=== PATIENT | male | born 1945 | race Caucasian/White ===

== ENCOUNTER 2021-02-28 15:57 | Inpatient (IN) | payer MEDICARE, OTHER ==
[~2021-02-28] VITALS: Ht 182.9 cm; Wt 90.7 kg
[2021-02-28 16:41] LABS: HEMATOCRIT 26.6 % (38.2-49.6); HEMOGLOBIN 8.1 g/dL (14.0-18.0); MEAN CORPUSCULAR HEMOGLOBIN 27.4 pg (28-32); MEAN CORPUSCULAR HGB CONC 30.5 g/dL (31-35); MEAN CORPUSCULAR VOLUME 89.9 fL (81-99); PLATELET COUNT 355 x10e3/uL (140-360); RED BLOOD COUNT 2.96 x10e6/uL (4.3-5.7)
[2021-02-28] MEDS ORDERED: SODIUM CHLORIDE 0.9% 1000ML 1,000 ML IV ONE (16:45)
[2021-02-28] MEDS ORDERED: ACETAMINOPHEN 650 MG SUPP PR ONE ×2 (16:54→17:00)
[2021-02-28] MEDS ORDERED: SODIUM CHLORIDE 0.9% 1000ML 1,000 ML ONE (16:54)
[2021-02-28 16:59] LABS: ALBUMIN/GLOBULIN RATIO 0.4 (0.8-2.0); ANION GAP 15.8 mmol/L (8-16); CREATININE, SERUM 0.88 mg/dL (0.72-1.25); POTASSIUM 3.8 mmol/L (3.5-5.1)
[2021-02-28] MEDS ORDERED: CEFTRIAXONE 1 GM in SODIUM CHLORIDE 0.9% 50ML 50 ML IV SCH (17:00)
[2021-02-28] MEDS ORDERED: IOPAMIDOL 370 MG/ML 200 ML INFUS..BTL INJ ONE (18:09)
[2021-02-28] MEDS ORDERED: SODIUM CHLORIDE 0.9% 50ML 50 ML ONE (18:09)
[2021-02-28 18:17] LABS: LYMPHOCYTES % (MANUAL) 24 % (19-48); MONOCYTES % (MANUAL) 9 % (3.4-9.0); NEUTROPHILS % (MANUAL) 67 % (40-74); PLATELET ESTIMATE ADEQUATE; PLATELET MORPHOLOGY COMMENT NORMAL; RBC MORPHOLOGY COMMENT NORMAL
[2021-02-28] MEDS ORDERED: MIDAZOLAM HCL 2 MG/2 ML VIAL IV ONE (18:30)
[2021-02-28 21:00] VITALS: BP 97/57
[2021-02-28] MEDS: CEFEPIME 2 GM in SODIUM CHLORIDE 0.9% 100 ML IV SCH (21:16)
[2021-02-28] MEDS: SODIUM CHLORIDE 0.9% 1000ML 1,000 ML IV SCH (21:16)
[2021-02-28 21:20] VITALS: BP 97/57
[2021-03-01] VITALS (7 sets, daily range): BP systolic 104–112; BP diastolic 65–77
[2021-03-01] MEDS: CEFEPIME 2 GM in SODIUM CHLORIDE 0.9% 100 ML IV SCH ×3 (05:56→21:01)
[2021-03-01] MEDS: SODIUM CHLORIDE 0.9% 1000ML 1,000 ML IV SCH ×3 (06:57→20:41)
[2021-03-01 07:17] LABS: BASOPHILS # (AUTO) 0.1 (0.0-0.1); BASOPHILS % 0.3 % (0.0-1.0); EOSINOPHILS % 0.1 % (0.0-6.0); HEMATOCRIT 27.3 % (38.2-49.6); HEMOGLOBIN 8.4 g/dL (14.0-18.0); LYMPHOCYTES # (AUTO) 1.2 (1.0-3.2); LYMPHOCYTES % 6.9 % (18.0-39.1); MEAN CORPUSCULAR HEMOGLOBIN 26.9 pg (28-32); MEAN CORPUSCULAR HGB CONC 30.8 g/dL (31-35); MEAN CORPUSCULAR VOLUME 87.5 fL (81-99); MONOCYTES # (AUTO) 0.6 (0.2-0.8); MONOCYTES % 3.1 % (4.4-11.3); NEUTROPHILS # (AUTO) 15.4 (2.1-6.9); NEUTROPHILS % 87.7 % (38.7-80.0); PLATELET COUNT 276 x10e3/uL (140-360); RED BLOOD COUNT 3.12 x10e6/uL (4.3-5.7); RED CELL DISTRIBUTION WIDTH 17.2 % (11.7-14.4)
[2021-03-01 07:37] LABS: ANION GAP 14.9 mmol/L (8-16); CALCIUM 9.3 mg/dL (8.4-10.2); CREATININE, SERUM 0.73 mg/dL (0.72-1.25); POTASSIUM 3.9 mmol/L (3.5-5.1)
[2021-03-01 09:16] LABS: EOSINOPHILS % (MANUAL) 1 % (0-7); LYMPHOCYTES % (MANUAL) 7 % (19-48); MONOCYTES % (MANUAL) 3 % (3.4-9.0); NEUTROPHILS % (MANUAL) 89 % (40-74); PLATELET ESTIMATE ADEQUATE
[2021-03-01 09:17] LABS: OVALOCYTES FEW
[2021-03-01 09:18] LABS: PLATELET MORPHOLOGY COMMENT FEW EDTA CLUMPING; RBC MORPHOLOGY COMMENT NORMAL
[2021-03-01] MEDS ORDERED: FLOMAX0.4 MG PO (11:17)
[2021-03-01] MEDS ORDERED: VALPROIC A250 MG/5 M PO (11:17)
[2021-03-01] MEDS ORDERED: AMLODIPINE BESYL5 MG PO (11:17)
[2021-03-01] MEDS ORDERED: LISINOPRIL20 MG PO (11:17)
[2021-03-01] MEDS ORDERED: ALTOPREV40 MG PO (11:17)
[2021-03-01] MEDS ORDERED: PANTOPRAZOLE SO40 MG PO (11:17)
[2021-03-01] MEDS ORDERED: BENZTROPINE MESY1 MG PO (11:17)
[2021-03-01] MEDS ORDERED: RISPERIDONE0.5 MG PO (11:17)
[2021-03-01] MEDS ORDERED: ATIVAN0.5 MG PO (11:17)
[2021-03-01] MEDS ORDERED: MULTI-VITAMIN1 EACH PO (11:17)
[2021-03-01] MEDS ORDERED: ACETAMINOPHEN-1 EAC3 PO (11:17)
[2021-03-01] MEDS ORDERED: BUPROPION HCL150 M2 PO (11:17)
[2021-03-01] MEDS ORDERED: TYLENOL325 MG PO (11:17)
[2021-03-01] MEDS ORDERED: ELIQUIS2.5 MG PO (11:17)
[2021-03-01] MEDS ORDERED: IPRAT-ALBUT 0.5-3 ML IH (11:17)
[2021-03-01] MEDS ORDERED: ZINC SULFATE50 M1 PO (11:17)
[2021-03-01] MEDS ORDERED: ACETAMINOPHEN 325 MG TAB PO PRN (13:00)
[2021-03-01] MEDS ORDERED: ACETAMINOPHEN/CODEINE 300MG - 30MG TAB PO PRN (13:00)
[2021-03-01] MEDS ORDERED: ALBUTEROL/IPRATROPIUM 3 ML NEB NEB PRN (13:00)
[2021-03-01] MEDS: LISINOPRIL 20 MG TAB PO SCH (17:00)
[2021-03-01] MEDS: APIXAB 2.5 MG TABLET PO SCH (18:01)
[2021-03-01] MEDS: VALPROATE 250MG/5ML ORAL LIQ 5ml PO SCH (18:01)
[2021-03-01] MEDS: BUPROPION HCL SR 150 MG TAB PO SCH (18:02)
[2021-03-01] MEDS: RISPERIDONE 0.5 MG TAB PO SCH (21:01)
[2021-03-01] MEDS: SIMVASTATIN 20 MG TAB PO SCH (21:01)
[2021-03-01] MEDS: LORAZEPAM 0.5 MG TAB PO PRN (21:01)
[2021-03-01] MEDS: TAMSULOSIN HCL 0.4 MG CAP PO SCH (21:01)
[2021-03-01] MEDS: Vancomycin IV 1 GM in SODIUM CHLORIDE 0.9% 250ML 250 ML IV SCH (22:51)
[2021-03-02] VITALS (8 sets, daily range): BP systolic 92–139; BP diastolic 58–88
[2021-03-02] MEDS: CEFEPIME 2 GM in SODIUM CHLORIDE 0.9% 100 ML IV SCH ×3 (05:06→21:47)
[2021-03-02] MEDS: SODIUM CHLORIDE 0.9% 1000ML 1,000 ML IV SCH (05:06)
[2021-03-02 06:13] LABS: BASOPHILS % 0.2 % (0.0-1.0); EOSINOPHILS # (AUTO) 0.1 (0.0-0.4); EOSINOPHILS % 0.7 % (0.0-6.0); HEMATOCRIT 24.1 % (38.2-49.6); HEMOGLOBIN 7.7 g/dL (14.0-18.0); LYMPHOCYTES # (AUTO) 1.1 (1.0-3.2); MEAN CORPUSCULAR HEMOGLOBIN 27.1 pg (28-32); MEAN CORPUSCULAR VOLUME 84.9 fL (81-99); MONOCYTES # (AUTO) 0.4 (0.2-0.8); MONOCYTES % 3.2 % (4.4-11.3); NEUTROPHILS # (AUTO) 10.1 (2.1-6.9); NEUTROPHILS % 85.9 % (38.7-80.0); PLATELET COUNT 358 x10e3/uL (140-360); RED BLOOD COUNT 2.84 x10e6/uL (4.3-5.7)
[2021-03-02 06:31] LABS: ANION GAP 11.6 mmol/L (8-16); CREATININE, SERUM 0.8 mg/dL (0.72-1.25); POTASSIUM 3.6 mmol/L (3.5-5.1)
[2021-03-02 09:35] LABS: BAND NEUTROPHILS % (MANUAL) 3 %; LYMPHOCYTES % (MANUAL) 7 % (19-48); NEUTROPHILS % (MANUAL) 90 % (40-74)
[2021-03-02] MEDS: APIXAB 2.5 MG TABLET PO SCH ×2 (09:37→16:30)
[2021-03-02] MEDS: BENZTROPINE MESYLATE 1 MG TAB PO SCH (09:37)
[2021-03-02] MEDS: VALPROATE 250MG/5ML ORAL LIQ 5ml PO SCH ×2 (09:37→16:30)
[2021-03-02] MEDS: AMLODIPINE BESYLATE 5 MG TAB PO SCH (09:38)
[2021-03-02] MEDS: PANTOPRAZOLE SOD 40 MG TABEC PO SCH (09:38)
[2021-03-02] MEDS: MULTIVITAMINS/MINERALS TAB PO SCH (09:38)
[2021-03-02] MEDS: BUPROPION HCL SR 150 MG TAB PO SCH ×2 (09:39→16:32)
[2021-03-02] MEDS: ZINC SULFATE 50 MG CAP PO SCH (09:39)
[2021-03-02] MEDS: LISINOPRIL 20 MG TAB PO SCH ×2 (09:39→16:32)
[2021-03-02] MEDS: Vancomycin IV 1 GM in SODIUM CHLORIDE 0.9% 250ML 250 ML IV SCH ×2 (10:30→22:47)
[2021-03-02] MEDS ORDERED: LACTATED RINGER'S 1,000 ML INJ ONE (11:45)
[2021-03-02] MEDS: LORAZEPAM 0.5 MG TAB PO PRN (19:52)
[2021-03-02] MEDS: TAMSULOSIN HCL 0.4 MG CAP PO SCH (20:11)
[2021-03-02] MEDS: SIMVASTATIN 20 MG TAB PO SCH (20:11)
[2021-03-02] MEDS: RISPERIDONE 0.5 MG TAB PO SCH (20:11)
[2021-03-03] VITALS (8 sets, daily range): BP systolic 104–126; BP diastolic 63–80
[2021-03-03 05:03] LABS: EOSINOPHILS # (AUTO) 0.1 (0.0-0.4); EOSINOPHILS % 1.6 % (0.0-6.0); HEMATOCRIT 23.6 % (38.2-49.6); HEMOGLOBIN 7.2 g/dL (14.0-18.0); LYMPHOCYTES # (AUTO) 1.4 (1.0-3.2); LYMPHOCYTES % 18.3 % (18.0-39.1); MEAN CORPUSCULAR HEMOGLOBIN 26.9 pg (28-32); MEAN CORPUSCULAR HGB CONC 30.5 g/dL (31-35); MEAN CORPUSCULAR VOLUME 88.1 fL (81-99); MONOCYTES # (AUTO) 0.3 (0.2-0.8); MONOCYTES % 3.3 % (4.4-11.3); NEUTROPHILS # (AUTO) 5.7 (2.1-6.9); NEUTROPHILS % 76.1 % (38.7-80.0); PLATELET COUNT 398 x10e3/uL (140-360); RED BLOOD COUNT 2.68 x10e6/uL (4.3-5.7); RED CELL DISTRIBUTION WIDTH 17.3 % (11.7-14.4)
[2021-03-03 05:25] LABS: ALBUMIN 1.7 g/dL (3.5-5.0); ALBUMIN/GLOBULIN RATIO 0.4 (0.8-2.0); ANION GAP 9.4 mmol/L (8-16); CALCIUM 8.7 mg/dL (8.4-10.2); CREATININE, SERUM 0.8 mg/dL (0.72-1.25); POTASSIUM 3.4 mmol/L (3.5-5.1)
[2021-03-03] MEDS: CEFEPIME 2 GM in SODIUM CHLORIDE 0.9% 100 ML IV SCH ×2 (05:53→13:27)
[2021-03-03] MEDS: APIXAB 2.5 MG TABLET PO SCH ×2 (08:41→16:45)
[2021-03-03] MEDS: LISINOPRIL 20 MG TAB PO SCH ×2 (08:41→16:46)
[2021-03-03] MEDS: BENZTROPINE MESYLATE 1 MG TAB PO SCH (08:41)
[2021-03-03] MEDS: MULTIVITAMINS/MINERALS TAB PO SCH (08:41)
[2021-03-03] MEDS: AMLODIPINE BESYLATE 5 MG TAB PO SCH (08:41)
[2021-03-03] MEDS: VALPROATE 250MG/5ML ORAL LIQ 5ml PO SCH ×2 (08:41→16:45)
[2021-03-03] MEDS: ZINC SULFATE 50 MG CAP PO SCH (08:42)
[2021-03-03] MEDS: BUPROPION HCL SR 150 MG TAB PO SCH ×2 (08:42→16:46)
[2021-03-03] MEDS: PANTOPRAZOLE SOD 40 MG TABEC PO SCH (08:42)
[2021-03-03 08:58] LABS: EOSINOPHILS % (MANUAL) 1 % (0-7); LYMPHOCYTES % (MANUAL) 11 % (19-48); NEUTROPHILS % (MANUAL) 88 % (40-74); PLATELET ESTIMATE ADEQUATE; PLATELET MORPHOLOGY COMMENT NORMAL; RBC MORPHOLOGY COMMENT NORMAL
[2021-03-03] MEDS: Vancomycin IV 1 GM in SODIUM CHLORIDE 0.9% 250ML 250 ML IV SCH (09:55)
[2021-03-03] MEDS ORDERED: POTASSIUM CHLORIDE 10MEQ EA PO ONE (11:00)
[2021-03-03] MEDS: COLLAGENASE 5 GM TUBE TOP SCH (16:45)
[2021-03-03] MEDS: LORAZEPAM 0.5 MG TAB PO PRN (17:00)
[2021-03-03] MEDS: TAMSULOSIN HCL 0.4 MG CAP PO SCH (20:43)
[2021-03-03] MEDS: RISPERIDONE 0.5 MG TAB PO SCH (20:43)
[2021-03-03] MEDS: SIMVASTATIN 20 MG TAB PO SCH (20:43)
[2021-03-04] VITALS (7 sets, daily range): BP systolic 110–123; BP diastolic 73–85
[2021-03-04] MEDS: BUPROPION HCL SR 150 MG TAB PO SCH ×2 (09:36→16:49)
[2021-03-04] MEDS: MULTIVITAMINS/MINERALS TAB PO SCH (09:36)
[2021-03-04] MEDS: APIXAB 2.5 MG TABLET PO SCH ×2 (09:36→16:49)
[2021-03-04] MEDS: ZINC SULFATE 50 MG CAP PO SCH (09:36)
[2021-03-04] MEDS: PANTOPRAZOLE SOD 40 MG TABEC PO SCH (09:36)
[2021-03-04] MEDS: VALPROATE 250MG/5ML ORAL LIQ 5ml PO SCH ×2 (09:36→16:49)
[2021-03-04] MEDS: LISINOPRIL 20 MG TAB PO SCH ×2 (09:36→17:21)
[2021-03-04] MEDS: BENZTROPINE MESYLATE 1 MG TAB PO SCH (09:36)
[2021-03-04] MEDS: AMLODIPINE BESYLATE 5 MG TAB PO SCH (09:36)
[2021-03-04] MEDS: COLLAGENASE 5 GM TUBE TOP SCH (09:36)
[2021-03-04] MEDS ORDERED: POTASSIUM CHLORIDE 10MEQ EA PO ONE (10:20)
[2021-03-04] MEDS: LORAZEPAM 0.5 MG TAB PO PRN (16:49)
[2021-03-04] MEDS: TAMSULOSIN HCL 0.4 MG CAP PO SCH (20:46)
[2021-03-04] MEDS: RISPERIDONE 0.5 MG TAB PO SCH (20:46)
[2021-03-04] MEDS: SIMVASTATIN 20 MG TAB PO SCH (20:46)
[2021-03-05] VITALS (7 sets, daily range): BP systolic 108–153; BP diastolic 64–128
[2021-03-05] MEDS: LISINOPRIL 20 MG TAB PO SCH ×2 (09:00→17:00)
[2021-03-05] MEDS: COLLAGENASE 5 GM TUBE TOP SCH (09:00)
[2021-03-05] MEDS: BUPROPION HCL SR 150 MG TAB PO SCH ×2 (09:00→17:00)
[2021-03-05] MEDS: APIXAB 2.5 MG TABLET PO SCH ×2 (09:00→17:00)
[2021-03-05] MEDS: AMLODIPINE BESYLATE 5 MG TAB PO SCH (09:00)
[2021-03-05] MEDS: PANTOPRAZOLE SOD 40 MG TABEC PO SCH (09:00)
[2021-03-05] MEDS: BENZTROPINE MESYLATE 1 MG TAB PO SCH (09:00)
[2021-03-05] MEDS: VALPROATE 250MG/5ML ORAL LIQ 5ml PO SCH ×2 (09:00→17:00)
[2021-03-05] MEDS: MULTIVITAMINS/MINERALS TAB PO SCH (09:00)
[2021-03-05] MEDS: ZINC SULFATE 50 MG CAP PO SCH (09:00)
[2021-03-05 13:48] LABS: BASOPHILS % 0.2 % (0.0-1.0); EOSINOPHILS # (AUTO) 0.1 (0.0-0.4); EOSINOPHILS % 1.1 % (0.0-6.0); HEMATOCRIT 26.1 % (38.2-49.6); HEMOGLOBIN 7.8 g/dL (14.0-18.0); LYMPHOCYTES # (AUTO) 1.4 (1.0-3.2); LYMPHOCYTES % 23.5 % (18.0-39.1); MEAN CORPUSCULAR HEMOGLOBIN 26.9 pg (28-32); MEAN CORPUSCULAR HGB CONC 29.9 g/dL (31-35); MONOCYTES # (AUTO) 0.3 (0.2-0.8); MONOCYTES % 4.3 % (4.4-11.3); NEUTROPHILS # (AUTO) 4.3 (2.1-6.9); NEUTROPHILS % 70.1 % (38.7-80.0); PLATELET COUNT 479 x10e3/uL (140-360); RED CELL DISTRIBUTION WIDTH 17.2 % (11.7-14.4)
[2021-03-05 14:16] LABS: ALBUMIN 1.9 g/dL (3.5-5.0); ALBUMIN/GLOBULIN RATIO 0.4 (0.8-2.0); ANION GAP 12.4 mmol/L (8-16); CREATININE, SERUM 0.72 mg/dL (0.72-1.25); POTASSIUM 3.4 mmol/L (3.5-5.1)
[2021-03-05] MEDS: RISPERIDONE 0.5 MG TAB PO SCH (22:00)
[2021-03-05] MEDS: TAMSULOSIN HCL 0.4 MG CAP PO SCH (22:00)
[2021-03-05] MEDS: SIMVASTATIN 20 MG TAB PO SCH (22:00)
[2021-03-06] VITALS (8 sets, daily range): BP systolic 112–154; BP diastolic 74–118
[2021-03-06] MEDS: MULTIVITAMINS/MINERALS TAB PO SCH (09:00)
[2021-03-06] MEDS: ZINC SULFATE 50 MG CAP PO SCH (09:00)
[2021-03-06] MEDS: COLLAGENASE 5 GM TUBE TOP SCH (09:00)
[2021-03-06] MEDS: VALPROATE 250MG/5ML ORAL LIQ 5ml PO SCH ×2 (09:00→17:00)
[2021-03-06] MEDS: BENZTROPINE MESYLATE 1 MG TAB PO SCH (09:00)
[2021-03-06] MEDS: PANTOPRAZOLE SOD 40 MG TABEC PO SCH (09:00)
[2021-03-06] MEDS: APIXAB 2.5 MG TABLET PO SCH ×2 (09:00→17:00)
[2021-03-06] MEDS: BUPROPION HCL SR 150 MG TAB PO SCH ×2 (09:00→17:00)
[2021-03-06] MEDS: LISINOPRIL 20 MG TAB PO SCH ×2 (09:00→17:00)
[2021-03-06] MEDS ORDERED: POTASSIUM CHLORIDE 20 MEQ TAB CR PO STA (09:52)
[2021-03-06 10:09] LABS: ANION GAP 12.4 mmol/L (8-16); CALCIUM 8.5 mg/dL (8.4-10.2); CREATININE, SERUM 0.68 mg/dL (0.72-1.25); POTASSIUM 3.4 mmol/L (3.5-5.1)
[2021-03-06 21:12] LABS: ANION GAP 14.3 mmol/L (8-16); CALCIUM 8.5 mg/dL (8.4-10.2); CREATININE, SERUM 0.8 mg/dL (0.72-1.25)
[2021-03-06 21:13] LABS: POTASSIUM 4.3 mmol/L (3.5-5.1)
[2021-03-06] MEDS: TAMSULOSIN HCL 0.4 MG CAP PO SCH (21:55)
[2021-03-06] MEDS: SIMVASTATIN 20 MG TAB PO SCH (22:31)
[2021-03-06] MEDS: RISPERIDONE 0.5 MG TAB PO SCH (22:31)
[2021-03-07 06:05] VITALS: BP 137/79
[2021-03-07 08:27] VITALS: BP 132/39
[2021-03-07 08:29] VITALS: BP 132/39
[2021-03-07] MEDS ORDERED: AMLODIPINE BESYLATE 10 MG TAB PO SCH (09:00)
[2021-03-07] MEDS: MULTIVITAMINS/MINERALS TAB PO SCH (10:06)
[2021-03-07] MEDS: VALPROATE 250MG/5ML ORAL LIQ 5ml PO SCH (10:06)
[2021-03-07] MEDS: BENZTROPINE MESYLATE 1 MG TAB PO SCH (10:06)
[2021-03-07] MEDS: APIXAB 2.5 MG TABLET PO SCH (10:06)
[2021-03-07] MEDS: COLLAGENASE 5 GM TUBE TOP SCH (10:07)
[2021-03-07] MEDS: BUPROPION HCL SR 150 MG TAB PO SCH (10:07)
[2021-03-07] MEDS: PANTOPRAZOLE SOD 40 MG TABEC PO SCH (10:07)
[2021-03-07] MEDS: ZINC SULFATE 50 MG CAP PO SCH (10:07)
[2021-03-07] MEDS: LISINOPRIL 20 MG TAB PO SCH (10:07)
[2021-03-07 12:13] VITALS: BP 94/59
== END 2021-03-07 13:31 | DRG 871 ==
LOC: ER 16:10 → ERHOLD 20:36 → IMCU 03-01 10:37
PROC: 8E0ZXY6 Isolation (ICD-10-PCS; principal; 2021-02-28)
DX: A41.9 Sepsis, unspecified organism (principal); U07.1 COVID-19; J12.82 Pneumonia due to coronavirus disease 2019; G93.41 Metabolic encephalopathy; N32.1 Vesicointestinal fistula; N10 Acute pyelonephritis; E44.0 Moderate protein-calorie malnutrition; E87.0 Hyperosmolality and hypernatremia; E87.1 Hypo-osmolality and hyponatremia; F03.91 Unspecified dementia, unspecified severity, with behavioral disturbance; M84.48XA Pathological fracture, other site, initial encounter for fracture; M84.454A Pathological fracture, pelvis, initial encounter for fracture; M84.451A Pathological fracture, right femur, initial encounter for fracture; Z93.3 Colostomy status; I10 Essential (primary) hypertension; Z85.038 Personal history of other malignant neoplasm of large intestine; R65.20 Severe sepsis without septic shock; M81.0 Age-related osteoporosis without current pathological fracture; Z74.01 Bed confinement status; R62.7 Adult failure to thrive; D50.0 Iron deficiency anemia secondary to blood loss (chronic); N40.1 Benign prostatic hyperplasia with lower urinary tract symptoms; R33.8 Other retention of urine; N32.81 Overactive bladder; R32 Unspecified urinary incontinence; N28.1 Cyst of kidney, acquired; N20.0 Calculus of kidney; Q53.10 Unspecified undescended testicle, unilateral; E87.6 Hypokalemia; Z68.27 Body mass index [BMI] 27.0-27.9, adult
CPT/HCPCS: 36415; 70450; 71045; 74177; 80048; 80053; 80202; 82948; 83605; 83735; 85007; 85025; 85027; 87040; 87071; 87205; 94799; 99251; 99285; J0692; J0696; J2250; J3370; J7030; J7050; J7121; Q9967; U0002

== ENCOUNTER 2021-05-05 17:19 | Emergency (ER) | payer MEDICARE, MEDICAID ==
[~2021-05-05] VITALS: Ht 182.9 cm; Wt 90.7 kg
[~2021-05-05 17:19] MED LIST: ACETAMINOPHEN-1 EAC3 PO; ALTOPREV40 MG PO; AMLODIPINE BESYL5 MG PO; ATIVAN0.5 MG PO; BENZTROPINE MESY1 MG PO; BUPROPION HCL150 M2 PO; ELIQUIS2.5 MG PO; FLOMAX0.4 MG PO; IPRAT-ALBUT 0.5-3 ML IH; LISINOPRIL20 MG PO; MULTI-VITAMIN1 EACH PO; PANTOPRAZOLE SO40 MG PO; RISPERIDONE0.5 MG PO; TYLENOL325 MG PO; VALPROIC A250 MG/5 M PO; ZINC SULFATE50 M1 PO
[2021-05-05] MEDS ORDERED: VIGAMOX3 ML OD (18:18)
== END 2021-05-05 19:30 | disposition home or self-care (01) ==
LOC: ER 17:46
DX: S22.020A Wedge compression fracture of second thoracic vertebra, initial encounter for closed fracture (principal); W19.XXXA Unspecified fall, initial encounter; Y92.128 Other place in nursing home as the place of occurrence of the external cause; I10 Essential (primary) hypertension; E78.5 Hyperlipidemia, unspecified; K21.9 Gastro-esophageal reflux disease without esophagitis; G30.9 Alzheimer's disease, unspecified; F02.80 Dementia in other diseases classified elsewhere, unspecified severity, without behavioral disturbance, psychotic disturbance, mood disturbance, and anxiety; Z93.3 Colostomy status
CPT/HCPCS: 70450; 72125; 99284